=== PATIENT | female | born 1945 | race Native Hawaiian/Other Pacific Islander ===

== ENCOUNTER 2017-02-10 19:25 | Emergency (ER) | payer MEDICARE, OTHER ==
[2017-02-10 20:24] VITALS: RESP 20
[2017-02-10] MEDS ORDERED: Albuterol-Ipratrop 3 mg / 0.5 (3 ml) UD INH STA (21:36)
--- NOTE | 2017-02-10 21:49 | C.PDOC ---
History Of Present Illness 71 years old female with Hx of HTN, Diabetes, Stroke, and hypercholesterolemia presents to ED with complaints of productive cough with sputum for the past week associated with body aches. Patient denies fever, chills, vomiting, or nausea and Hx of asthma. Time Seen by Provider: 02/10/17 21:26 Chief Complaint (Nursing): Cough, Cold, Congestion History Per: Patient History/Exam Limitations: no limitations Onset/Duration Of Symptoms: Days (7) Current Symptoms Are (Timing): Still Present Severity: Mild Pain Scale Rating Of: 3 Recent travel outside of the [place]: No Past Medical History Reviewed: Historical Data, Nursing Documentation, Vital Signs Vital Signs: Last Vital Signs Temp 98.1 F 02/10/17 22:21 Pulse 57 L 02/10/17 22:21 Resp 20 02/10/17 22:21 BP 151/61 H 02/10/17 22:21 Pulse Ox 96 02/10/17 22:58 - Medical History PMH: CVA, Diabetes, HTN, Hypercholesterolemia Family History: States: No Known Family Hx - Social History Hx Alcohol Use: No Hx Substance Use: No - Immunization History Hx Tetanus Toxoid Vaccination: No Hx Influenza Vaccination: Yes Hx Pneumococcal Vaccination: No Review Of Systems Constitutional: Negative for: Fever, Chills Cardiovascular: Negative for: Chest Pain Respiratory: Positive for: Cough, Sputum. Negative for: Shortness of Breath Gastrointestinal: Negative for: Nausea, Vomiting, Diarrhea Musculoskeletal: Positive for: Other (Body ache) Neurological: Negative for: Weakness Psych: Negative for: Depression, Suicidal ideation Physical Exam - Physical Exam Appears: Non-toxic, Other (Awake and Alert ) Skin: Warm, Dry Head: Atraumatic, Normacephalic Eye(s): bilateral: Normal Inspection Oral Mucosa: Moist Chest: Symmetrical, No Tenderness Cardiovascular: Rhythm Regular Respiratory: No Rales, No Rhonchi, Wheezing (Right lower expiratory wheezing) Gastrointestinal/Abdominal: Soft, No Tenderness Neurological/Psych: Oriented x3, Normal Speech, Normal Cognition ED Course And Treatment - Laboratory Results Result Diagrams: 02/10/17 21:50 02/10/17 21:50 Lab Interpretation: Normal (flu neg, trop neg.) ECG: Interpreted By Co ECG Rhythm: Sinus Rhythm ECG Interpretation: Normal Rate From EC O2 Sat by Pulse Oximetry: 96 (Room air) Pulse Ox Interpretation: Normal - Radiology CXR: Interpreted by Me CXR Interpretation: Yes: No Acute Disease Progress Note: duoneb, solumedrol Reevaluation Time: 22:57 Reassessment Condition: Improved (much improved.) Medical Decision Making Medical Decision Making: Administered SOLU-Medrol and Duoneb neubulizer. Ordered EKG, blood work, CXR, Urinalysis, and flu AB swab. bronchitis, no pna/pnx/flu defer steroids for DM and risk of increased glu. Disposition Doctor Will See Patient In The: Office Counseled Patient/Family Regarding: Studies Performed, Diagnosis - Disposition Referrals: [facility] [Outside] [facility] [Outside] Disposition: HOME/ ROUTINE Disposition Time: 22:58 Condition: GOOD Additional Instructions: Evaluation significant for Bronchitis: NEGATIVE for pneumonia, influenza Continue Azithromycin 250 mg daily for 4 more days Continue flu/cold medicines as directed Drink plenty of fluids Follow-up w your PMD as needed in 2-3 days. Prescriptions: Azithromycin 1 tab PO DAILY #4 tab Instructions: Acute Bronchitis (ED), Viral Syndrome (ED) Forms: [employer] (Frisian) - Clinical Impression Clinical Impression: Influenza-like illness, Bronchitis - Scribe Statement The provider has reviewed the documentation as recorded by the Bethibpernell Braun All medical record entries made by the Bethibpernell were at my direction and personally dictated by me. I have reviewed the chart and agree that the record accurately reflects my personal performance of the history, physical exam, medical decision making, and the department course for this patient. I have also personally directed, reviewed, and agree with the discharge instructions and disposition.
[2017-02-10 21:53] LABS: BASO # 0.1 K/uL (0.0-0.2); BASO % 1.1 % (0.0-2.0); EOS # 0.2 K/uL (0.0-0.7); HEMOGLOBIN 12.5 g/dL (11.0-16.0); LYMPH # 2.7 K/uL (1.0-4.3); MEAN CELL VOLUME 84.3 fL (81.0-99.0); MEAN CORPUSCULAR HEMOGLOBIN 28.6 pg (27.0-31.0); MEAN CORPUSCULAR HGB CONC 33.9 g/dL (33.0-37.0); MEAN PLATELET VOLUME 9.6 fL (7.2-11.7); MONO # 0.7 K/uL (0.0-0.8); NEUT # 6.9 K/uL (1.8-7.0); NEUT % 64.9 % (50.0-75.0); NRBC % 0.1 % (0.0-2.0); RBC 4.39 Mil/uL (3.80-5.20); RED CELL DISTRIBUTION WIDTH 13.1 % (11.5-14.5); WHITE BLOOD COUNT 10.6 K/uL (4.8-10.8)
[2017-02-10 22:06] LABS: CALCIUM 8.9 mg/dl (8.6-10.4); GFR AFRICAN-AMERICAN > 60; GFR NON-AFRICAN AMERICAN 54
[2017-02-10 22:07] LABS: ALBUMIN 4.3 g/dL (3.5-5.0); ALT/SGPT 22 U/L (9-52); AST/SGOT 36 U/L (14-36); BLOOD UREA NITROGEN 32 mg/dL (7-17)
[2017-02-10 22:18] LABS: B-TYPE NATRIURETIC PEPTIDE 240 pg/mL (0-900)
[2017-02-10 22:46] VITALS: BP 151/61; PULSE 57; TEMP 98.1
[2017-02-10 22:58] VITALS: O2SAT 96
--- NOTE | 2017-02-11 15:35 | RAD ---
PROCEDURE: CHEST RADIOGRAPH, 1 VIEW HISTORY: SOB COMPARISON: None available. FINDINGS: LUNGS: Clear. PLEURA: No pneumothorax or pleural fluid seen. CARDIOVASCULAR: Normal. OSSEOUS STRUCTURES: No significant abnormalities. VISUALIZED UPPER ABDOMEN: Normal. OTHER FINDINGS: None. IMPRESSION: No active disease.
== END 2017-02-10 23:18 | disposition home or self-care (01) ==
LOC: C.ER 19:25
DX: J11.1 Influenza due to unidentified influenza virus with other respiratory manifestations (principal); I10 Essential (primary) hypertension; E11.9 Type 2 diabetes mellitus without complications
CPT/HCPCS: 71045; 80053; 83880; 84484; 85025; 87804; 94640; 96374; 99284; J2930